=== PATIENT | male | born 1975 | race Caucasian/White ===

== ENCOUNTER 2017-06-23 16:05 | Inpatient (IN) | payer OTHER ==
[2017-06-23] MEDS ORDERED: ONDANSETRON 4 MG/2 ML VIAL IVP PRN ×3 (16:23→23:28)
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
[2017-06-23] MEDS: HYDROmorphONE/DILAUDID 1 MG/ML INJ IVP PRN ×3 (16:30→18:04)
[2017-06-23 17:15] LABS: % IMMATURE GRANULYOCYTES 0.4 % (0.0-1.1); ABSOLUTE IMMATURE GRANULOCYTES 0.03 10^3/uL (0.00-0.10); ADD DIFF? NO; ADD MORPH? NO; ADD SCAN? NO; ATYPICAL LYMPHOCYTE FLAG 0 (0-99); FRAGMENT RBC FLAG 0 (0-99); HEMATOCRIT 43.4 % (40.0-51.0); HEMOGLOBIN 15.1 g/dL (13.7-17.5); LEFT SHIFT FLG 10 (0-99); LIPEMIA HEMOLYSIS FLAG 90 (0-99); MEAN CELL HEMOGLOBIN 30.2 pg (27.9-34.1); MEAN CELL HEMOGLOBIN CONCENTR. 34.8 g/dL (32.4-36.7); MEAN CELL VOLUME 86.8 fL (81.5-99.8); MEAN PLATELET VOLUME 10.6 fL (8.7-11.7); PLATELET CLUMPS FLAG 10 (0-99); PLATELET COUNT 209 10^3/uL (150-400); RED CELL DISTRIBUTION WIDTH 12.1 % (11.5-15.2)
[2017-06-23 17:25] LABS: ANION GAP 11 mEq/L (8-16); CALCIUM 9.7 mg/dL (8.5-10.4); CARBON DIOXIDE 25 mEq/l (22-31); CHLORIDE 102 mEq/L (97-110); CREATININE 0.7 mg/dL (0.7-1.3); GLOMERULAR FILTRATION RATE > 60; GLUCOSE 141 mg/dL (70-100); POTASSIUM 3.9 mEq/L (3.5-5.2); SODIUM 138 mEq/L (134-144)
[2017-06-23 17:58] LABS: INR 1.08 (0.83-1.16); PROTIME(PATIENT) 13.9 SEC (12.0-15.0)
[2017-06-23 17:59] LABS: APTT 23.4 SEC (23.0-38.0)
[2017-06-23] MEDS ORDERED: NS 1,000 ML IV ONE (19:21)
[2017-06-23] MEDS ORDERED: ROPIVACAINE HCL 20 MG/10 ML INJ EP ONE (20:23)
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
[2017-06-23] MEDS ORDERED: MIDAZOLAM 2 MG/2 ML VIAL IVP ONE ×2 (21:29→21:45)
--- NOTE | 2017-06-23 21:32 | PDANEPAE ---
ANE History of Present Illness L tib fib orif ANE Past Medical History - Pulmonary History Hx Oxygen in Use at Home: No Hx Sleep Apnea: No - Endocrine History Hx Diabetes: Yes Hypothyroid: Yes - Chronic Pain History Chronic Pain: No ANE Review of Systems Review of systems is: negative Review of Systems: - Exercise capacity Exercise capacity: >=4 METS ANE Patient History - Allergies Allergies/Adverse Reactions: No Known Allergies Allergy (Verified 06/23/17 16:53) - Home Medications Home medications: home medication list seen and reviewed Home Medications: Insulin Detemir [Levemir Flextouch] 16 unit SQ HS 02/25/12 [Last Taken 06/22/17] Insulin Lispro [Humalog] 8 - 12 unit SQ QIDMEAL 06/23/17 [Last Taken 06/23/17 AM ] Levothyroxine [Synthroid 175 mcg (*)] 175 mcg PO DAILY06 06/23/17 [Last Taken ] - NPO status NPO Since - Liquids (Date): 06/23/17 NPO Since - Liquids (Time): 14:30 NPO Since - Solids (Date): 06/23/17 NPO Since - Solids (Time): 14:30 - Anes Hx Anes Hx: no prior problems - Smoking Hx Smoking Status: Never smoked - Family Anes Hx Family Anes Hx: none (Light meal 1430) ANE Labs/Vital Signs - Labs Result Diagrams: 06/23/17 16:20 06/23/17 16:20 - Vital Signs Blood Pressure: 120/60 Heart Rate: 60 Respiratory Rate: 14 O2 Sat (%): 93 Height: 180.34 cm Weight: 79.379 kg ANE Physical Exam - Airway Neck exam: FROM Mallampati Score: Class 1 Mouth exam: normal dental/mouth exam - Pulmonary Pulmonary: no respiratory distress - Cardiovascular Cardiovascular: regular rate and rhythym ANE Anesthesia Plan Anesthesia Plan: general endotracheal anesthesia
[2017-06-23] MEDS ORDERED: ROCURONIUM 50 MG/5 ML VIAL ONE (21:35)
[2017-06-23] MEDS ORDERED: DEXAMETHASONE 4 MG/ML VIAL ONE (21:35)
[2017-06-23] MEDS ORDERED: PROPOFOL 200 MG/20 ML VIAL ONE (21:35)
[2017-06-23] MEDS ORDERED: LIDOCAINE 2% 100 MG/5 ML SYR ONE (21:35)
[2017-06-23] MEDS ORDERED: ONDANSETRON 4 MG/2 ML VIAL ONE (21:35)
[2017-06-23] MEDS ORDERED: fentaNYL 100 MCG/2 ML INJ ONE ×2 (21:36→23:50)
[2017-06-23] MEDS ORDERED: HYDROmorphONE/DILAUDID 2 MG/ML INJ ONE (21:37)
[2017-06-23] MEDS ORDERED: CEFAZOLIN 2 GM/DEXTROSE/100 ML BAG IV ONE (21:40)
[2017-06-23] MEDS ORDERED: MIDAZOLAM 2 MG/2 ML VIAL ONE (21:40)
[2017-06-23] MEDS ORDERED: HYDROmorphONE/DILAUDID 1 MG/ML INJ IVP PRN ×2 (23:21→23:28)
[2017-06-23] MEDS ORDERED: OXYCODONE/APAP 5/325 TAB PO PRN (23:21)
[2017-06-23] MEDS ORDERED: HYDROCODONE/APAP 5/325 TAB PO PRN (23:21)
[2017-06-23] MEDS ORDERED: DEXAMETHASONE 4 MG/ML VIAL IVP PRN (23:28)
[2017-06-23] MEDS ORDERED: fentaNYL 100 MCG/2 ML INJ IVP PRN (23:28)
[2017-06-23] MEDS ORDERED: MEPERIDINE 25 MG/ML SYR IVP PRN (23:28)
[2017-06-23] MEDS ORDERED: ACETAMINOPHEN 500 MG TAB PO PRN (23:28)
[2017-06-23] MEDS ORDERED: NALOXONE HCL 0.4 MG/ML INJ IVP PRN (23:28)
[2017-06-23] MEDS ORDERED: PROMETHAZINE HCL 25 MG/ML INJ IVP PRN (23:28)
[2017-06-23] MEDS ORDERED: D5W 1/2 NS W/ 20 KCl/L 1,000 ML IV SCH (23:30)
--- NOTE | 2017-06-23 23:32 | POSTANESTH ---
Post Anesthetic Evaluation Cardiovascular Status: Normal, Stable, Similar to Pre-Op Cond Respiratory Status: Normal, Stable, Similar to Pre-op Cond. Level of Consciousness/Mental Status: Can Participate in Eval, Mildly Sleepy, Arousable Pain Control: Adequate, Prn Tx Ordered Nausea/Vomiting Control: Adequate, Prn Tx Ordered Complications Possibly Related to Anesthesia: None Noted
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
[2017-06-24] MEDS: ACETAMINOPHEN 325 MG TAB PO PRN ×3 (00:48→13:17)
[2017-06-24] MEDS ORDERED: NS 1,000 ML IV SCH (02:45)
[2017-06-24] MEDS ORDERED: LR 1,000 ML IV SCH (03:00)
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
[2017-06-24] MEDS ORDERED: LEVOTHYROXINE 175 MCG TAB PO SCH (06:00)
[2017-06-24 07:55] VITALS: RESP 16
[2017-06-24] MEDS: Insulin Lispro [Humalog Kwikpen U-100] SQ SCH ×3 (08:30→17:58)
[2017-06-24] MEDS ORDERED: ENOXAPARIN 40 MG/0.4 ML SYR SC SCH (09:00)
[2017-06-24] MEDS: KETOROLAC 15 MG/1 ML SDV IVP PRN ×2 (09:06→15:25)
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
[2017-06-24 12:38] VITALS: O2SAT 95
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
[2017-06-24 16:00] VITALS: BP 110/52; PULSE 67; TEMP 97.8
[2017-06-24] MEDS ORDERED: INSULIN DETEMIR SQ SCH (21:00)
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
== END 2017-06-24 18:09 | disposition home or self-care (01) | DRG 494 ==
LOC: EDUNIT# → OBSVTOIN 17:06 → F3E 19:42
PROVIDERS: ADMIT Surgery; ATTEND Surgery
PROC: BQ1FZZZ Fluoroscopy of Left Lower Leg (ICD-10-PCS; 2017-06-23)
PROC: 0QSH06Z Reposition Left Tibia with Intramedullary Internal Fixation Device, Open Approach (ICD-10-PCS; principal; 2017-06-23 19:30)
DX: S82.392A Other fracture of lower end of left tibia, initial encounter for closed fracture (principal); S82.452A Displaced comminuted fracture of shaft of left fibula, initial encounter for closed fracture; V18.0XXA Pedal cycle driver injured in noncollision transport accident in nontraffic accident, initial encounter; Y93.55 Activity, bike riding; Y92.410 Unspecified street and highway as the place of occurrence of the external cause; E10.9 Type 1 diabetes mellitus without complications; E03.9 Hypothyroidism, unspecified
CPT/HCPCS: 97161-GP; 97165-GO; C1713; C1769; J0690; J1100; J1170; J1650; J1885; J2001; J2250; J2405; J2704; J2795; J3010

== ENCOUNTER → 2018-12-31 | Outpatient (CLI) | payer OTHER | LOC: BMCIMAGING 11:02 | PROVIDERS: ATTEND Family Medicine | DX: Z13.820 Encounter for screening for osteoporosis (principal); E07.9 Disorder of thyroid, unspecified; Z87.81 Personal history of (healed) traumatic fracture; Z79.899 Other long term (current) drug therapy ==